=== PATIENT | male | born 1960 | race Caucasian/White ===

== ENCOUNTER 2018-02-18 12:20 | Emergency (ER) | payer OTHER ==
[~2018-02-18] VITALS: Ht 170.2 cm; Wt 106.6 kg
[2018-02-18] MEDS ORDERED: HYDROCODONE/APAP 10MG-325MG TAB PO NR (13:45)
--- NOTE | 2018-02-18 14:02 | Diagnostic Imaging Report ---
CT BRAIN WO HISTORY: Syncope COMPARISON: None. TECHNIQUE: Noncontrast axial scans were obtained from skull base to the vertex. Coronal and sagittal reconstructions obtained from the axial data. One or more of the following dose reduction techniques were used: Automated exposure control, adjustment of the mA and/or kV according to patient size, and/or utilization of iterative reconstruction technique. DISCUSSION: Scalp/Skull: Unremarkable. Brain sulci: Appropriate for patient's age. Ventricles: Normal in size and configuration. No hydrocephalus. Extra-axial spaces: No masses or fluid collections. Parenchyma: Minimal carotid siphon calcification is present. No masses, hemorrhage, or large vascular territory acute infarct. Dural sinuses: No abnormal densities. Sellar/Suprasellar region: Intact. Skull base: Intact. Incidental findings: None. IMPRESSION: No acute intracranial abnormalities. Signed by: Dr. Mike Umaña M.D. on 02/18/2018 1:59 PM
--- NOTE | 2018-02-18 14:09 | Diagnostic Imaging Report ---
Exam: Right Hand Series three views; Right forearm two views History: Fall Comparison: <None.> Findings: No evidence of acute fracture or malalignment within the right hand or forearm. A soft tissue laceration is seen overlying the ulnar aspect of the wrist soft tissues. No evidence of underlying bony involvement. Superficial hyperdense material is noted overlying the ulnar and dorsal soft tissues of the mid forearm. Mild interphalangeal joint degenerative changes with joint space narrowing. Impression: Laceration involving the ulnar soft tissues of the wrist without underlying bony involvement. No evidence of fracture in the right forearm or hand. Superficial hyperdense material at the ulnar and dorsal soft tissues of the forearm, likely overlying the patient. Signed by: Dr. Alvin Hidalgo MD on 02/18/2018 2:06 PM
--- NOTE | 2018-02-18 14:14 | Diagnostic Imaging Report ---
Exam: Right shoulder two views; Right humerus two views History: Fall Comparison: Concurrently performed right forearm radiographs. Findings: No evidence of acute fracture or malalignment within the right shoulder or humerus. Soft tissues are unremarkable. The joint spaces are preserved. Possible healed fracture deformity involving the right anterior second rib. Impression: No acute radiographic abnormality involving the right shoulder or humerus. Possible healed fracture deformity involving the right anterior second rib. Signed by: Dr. Alvin Hidalgo MD on 02/18/2018 2:10 PM
[2018-02-18] MEDS ORDERED: LIDOCAINE HCL 1% LOCAL INJ 20 ML VIAL ONE (14:56)
[2018-02-18] MEDS ORDERED: NEOMYCIN/POLYMYX/BACITR OINT 0.9 GM PKT ONE (14:56)
[2018-02-18] MEDS ORDERED: NEOMYCIN/POLYMYX/BACITR OINT 0.9 GM PKT TOP ONE (15:00)
[2018-02-18] MEDS ORDERED: LIDOCAINE HCL 1% LOCAL INJ 20 ML VIAL INJ ONE (15:00)
== END 2018-02-18 15:52 | disposition home or self-care (01) ==
LOC: ER 12:20
DX: S61.511A Laceration without foreign body of right wrist, initial encounter (principal); S60.221A Contusion of right hand, initial encounter; R55 Syncope and collapse; W26.8XXA Contact with other sharp object(s), not elsewhere classified, initial encounter; Y92.89 Other specified places as the place of occurrence of the external cause; Y99.0 Civilian activity done for income or pay
CPT/HCPCS: 12002; 70450; 73030; 73060; 73090; 73130; 99284; J2001